=== PATIENT | male | born 1960 | race Caucasian/White ===

== ENCOUNTER 2017-08-25 11:01 | Day surgery (SDC) | payer BC ==
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
[~2017-08-25 11:01] MED LIST: CEFAZOLIN 2 GM-D5W BAG** 2 GM/50 ML ML IV ONE; Lactated Ringers 1,000 ML IV ONE; Lactated Ringers 1,000 ML IV SCH; Sensorcaine 0.25% 10 ML ONE
[2017-08-25] MEDS ORDERED: Zemuron 100 MG/10 ML IJ ONE (11:02)
[2017-08-25] MEDS ORDERED: Decadron 4 MG INJ IV ONE (11:02)
[2017-08-25] MEDS ORDERED: Zofran 4 MG/2 ML VIAL IV ONE (11:02)
[2017-08-25] MEDS ORDERED: TORAdol 30 mg Injection IJ ONE (11:02)
[2017-08-25] MEDS ORDERED: DIPRIVAN 200 MG/20 ML IV ONE (11:02)
[2017-08-25] MEDS ORDERED: LIDOCAINE HCL 2% 100 MG/5 ML IJ ONE (11:02)
[2017-08-25] MEDS ORDERED: Quelicin Fliptop 200 MG/10 ML IJ ONE (11:02)
[2017-08-25] MEDS ORDERED: SUBLIMAZE 100 MCG/2 ML IV ONE (11:02)
[2017-08-25] MEDS ORDERED: BRIDION 200MG/2ML IV ONE (11:02)
[2017-08-25] MEDS ORDERED: Naropin 0.5% 30 ML VIAL IJ ONE (11:02)
[2017-08-25] MEDS ORDERED: CEFAZOLIN 2 GM-D5W BAG** 2 GM/50 ML ML IV SCH (11:30)
[2017-08-25 11:47] LABS: Mean Cell Volume 88.8 fl (78-100); Mean Corpuscular Hemoglobin 31.3 pg (26-32); Mean Platelet Volume 9.4 fl (6-9.5); Platelet Count 188 K/mm3 (150-450); Red Blood Count 4.92 M/mm3 (4.1-5.6); Red Cell Distribution Width 13.5 % (11.5-14.0); White Blood Count 8.5 K/mm3 (4.0-10.5)
[2017-08-25 12:11] LABS: ANION GAP 11.6 MEQ/L (5-15); CHLORIDE 104 mEq/L (98-107); Carbon Dioxide 28.1 mEq/L (21-32); Glucose 109 MG/DL (70-110); Potassium 4.5 mEq/L (3.5-5.1); SODIUM 139 mEq/L (136-145)
[2017-08-25 12:26] LABS: BLOOD UREA NITROGEN 16 mg/dL (9-20)
[2017-08-25] MEDS ORDERED: Lactated Ringers 1,000 ML IV ONE (15:28)
[2017-08-25] MEDS ORDERED: DILAUDID 2 MG INJECTION ONE (15:40)
--- NOTE | 2017-08-25 15:44 | OP ---
SURGERY DATE/TIME: 08/25/2017 1415 PREOPERATIVE DIAGNOSIS: Epigastric-abdominal wall bulge question of ventral hernia and also question of ventral hernia on recent CT scan. POSTOPERATIVE DIAGNOSIS: Two separate incarcerated epigastric-ventral hernias. PROCEDURE: Repair of incarcerated epigastric ventral hernia x2 (repaired en bloc with single piece of mesh). SURGEON: Dr. Zhang Barraza. ANESTHESIA: General. ESTIMATED BLOOD LOSS: Minimal. INDICATIONS: As noted above. Risks and benefits explained in detail and not limited to and consent obtained. DESCRIPTION OF PROCEDURE AND FINDINGS: The patient is taken to the operating room. General anesthesia was introduced. The site had been confirmed with the patient prior to anesthetic and marked. Abdomen prepped and draped in usual sterile fashion. After official time out and no disagreement with planned procedure, a transverse incision made overlying the area as this is slightly off to the right on CT scan and palpation. Dissection carried down through the subcutaneous tissue. A moderate amount of subcutaneous tissue down to what appeared to be incarcerated preperitoneal omental fat this was a large area a little more cephalad and a separate smaller incarcerated ventral hernia just below this. These were definitely separate and not part of the umbilical area and was definitely epigastric ventral hernias two separate ones. They were close enough it was felt to be most effectively repaired using a single piece of mesh therefore the small fascial bridge between them were divided. Allowing both of these incarcerated hernias to reduced back down in the abdomen. The fascia is then cleared circumferentially 360 degrees around this hernia defect. After doing so I measured the size of the defect and the fascial clearance, it was felt a size [address] mesh the most appropriate size of mesh. Carefully then positioned, secured 1 cm apart around the edges with interrupted 0 Prolene in a tension free manner. Once this was accomplished good attenuated fascia was then closed over the top of this area. Isolating the mesh away from the rest of the wound with interrupted 0 PDS in a tension-free manner. 0.25% Marcaine local injected along each side along the skin incision. Copious amount of irrigation irrigating until clear. Deep subcu closed with 3-0 Vicryl, superficial subcu closed with 3-0 Vicryl, superficial subcu closed 3-0 Vicryl reducing the space of the skin and closed with 4-0 Vicryl running subcuticular fashion. Steri-Strips and sterile dressing applied. Anesthesia applied TAP blocks at the end of the procedure. He tolerated the procedure well. There were no immediate complications. He will be transferred to the recovery room in stable condition and then discharged home to follow up in the office in a couple weeks.
[2017-08-25 16:24] VITALS: O2SAT 96
[2017-08-25 16:41] VITALS: BP 151/88; PULSE 71
== END 2017-08-25 18:22 | disposition home or self-care (01) ==
LOC: EDBD → SDC 11:01
PROVIDERS: ATTEND Surgery
PROC: 0WUF0JZ Supplement Abdominal Wall with Synthetic Substitute, Open Approach (ICD-10-PCS; principal; 2017-08-25)
DX: K43.6 Other and unspecified ventral hernia with obstruction, without gangrene (principal)
CPT/HCPCS: 00752; 36415; 64488; 76937; 76942; 80048; 85027; 93005; C1781; J0330; J0690; J1100; J1170; J1885; J2405; J2704; J2795; J3010; L0625